=== PATIENT | female | born 1930 | race Caucasian/White ===

== ENCOUNTER 2021-11-13 13:06 | Inpatient (IN) | payer BC ==
[~2021-11-13] VITALS: Ht 162.6 cm; Wt 66.6 kg
--- NOTE | ~2021-11-13 | CON ---
[address] [address] CONSULTATION Name: ELISSA MARTIN Russel Room: [address] IN M.R.#: [id number] Admission: 11/13/21 Attend Phys: Kristine Recinos MD Discharge: Date of : [birth year] Report #: [id number] THIS REPORT FOR: cc: Mitzy Rossi MD, Pamela MD Vasudeva, Amita MD ~ DATE OF CONSULTATION: 11/15/2021 NEPHROLOGY CONSULTATION CONSULTING PHYSICIAN: Dr. Recinos. REASON FOR NEPHROLOGY CONSULTATION: Acute kidney injury. REASON FOR ADMISSION: Progressive weakness. HISTORY OF PRESENT ILLNESS: This is an 89-year-old female who came in with 3-4 week history of feeling weak and having diarrhea, possibly COVID, although she tested negative here at the hospital. She had a positive contact, came in with weakness. Her creatinine was 3.2 on admission. Denies having any kidney problems in the past. We will have a baseline creatinine on her. She does take hydrochlorothiazide at home, which was held and she was given IV fluids and creatinine is improved to 2.2. She also takes an ARB. She also was found to be in atrial flutter with a rapid ventricular response and Cardiology has been managing that. She is doing better overall. She wants to go home soon. ALLERGIES: THIMEROSAL. REVIEW OF SYSTEMS: As mentioned in history of present illness and otherwise 10-point review of systems are negative. HOME MEDICATIONS: Which include candesartan, hydrochlorothiazide, diltiazem, and metformin. PAST MEDICAL AND SURGICAL HISTORY: Which includes tachycardia. FAMILY HISTORY: Noncontributory in this 89-year-old female. SOCIAL HISTORY: Does not smoke, drink alcohol or use illicit drugs. PHYSICAL EXAMINATION: VITAL SIGNS: Blood pressure is 146/87, pulse rate is 110, temperature 37.1, respiratory rate is 20, and pulse ox is 95% on no oxygen. GENERAL: She is awake, alert, and oriented x 3. HEAD AND EYES: Atraumatic, normocephalic. [place] [address] CONSULTATION Name: ELISSA MARTIN Room: [address] IN [facility]#: [id number] Admission: 11/13/21 Attend Phys: Kristine Recinos MD Discharge: Date of : [birth year] Report #: [id number] EARS, NOSE, AND THROAT: Normal ears and nose. Mucous membranes are moist. NECK: No JVD. CHEST: Bilaterally diminished breath sounds. No crackles or wheezing. CARDIOVASCULAR: S1, S2 normal. No murmurs. ABDOMEN: Soft, nondistended, and nontender. LOWER EXTREMITIES: No lower extremity edema. NEUROLOGIC: She is grossly intact. PSYCHIATRIC: Mood and affect seems to be normal. LABORATORY DATA: Hemoglobin is 9.5. Her CO2 is 19, creatinine is 2.2, which is down from 2.5. Other labs are reviewed. IMAGING: Thyroid ultrasound, chest x-ray, chest CT, and abdominopelvic CT scan were reviewed. ASSESSMENT: 1. Acute kidney injury with baseline creatinine is not known, came in with a creatinine of 3.2 in the setting of diarrhea, volume depletion, hydrochlorothiazide and ARB use. Urinalysis, looked like contaminated specimen had no protein or blood. Renal imaging did not show any hydronephrosis, just renal cysts bilaterally which looked simple in nature. 2. Hypertension. Blood pressure seems to be controlled. 3. Atrial flutter with rapid ventricular response and aortic stenosis. Cardiology is following and managing. 4. I suspect recent COVID, although she tested negative. She had a positive family contact. 5. Diarrhea, could be in the setting of COVID, which has improved now. 6. Thyroid nodules, we defer to primary team. PLAN: 1. With IV fluids, her creatinine is improving, it is down to 2.2, I would hold off on ARB as well until she completely recovers from her STEVE. 2. Try to find out her baseline creatinine. Since her kidney function continues to get better, there is nothing else to add from Nephrology standpoint and we will be signing off now. Please call if you have any questions. Discussed with the patient. By: 0938 [id number] Quick MD /nt
[2021-11-13 13:29] VITALS: BP 169/84
[2021-11-13] MEDS ORDERED: DILTIAZEM ER180 M2 PO (13:36)
[2021-11-13] MEDS ORDERED: LIPITOR10 MG PO (13:36)
[2021-11-13] MEDS ORDERED: HYDROCHLOROTH12.5 M1 PO (13:36)
[2021-11-13] MEDS ORDERED: METFORMIN HCL500 M3 PO (13:36)
[2021-11-13] MEDS ORDERED: ATACAND4 MG PO (13:37)
[2021-11-13 13:42] LABS: URINE BILIRUBIN NEGATIVE (Negative); URINE BLOOD NEGATIVE (Negative); URINE CLARITY CLEAR; URINE COLOR YELLOW; URINE GLUCOSE-RANDOM NEGATIVE (Negative); URINE KETONES NEGATIVE (Negative); URINE LEUKOCYTES-REFLEX TRACE (Negative); URINE NITRITE-REFLEX NEGATIVE (Negative); URINE PROTEIN NEGATIVE (Negative); URINE SPECIFIC GRAVITY 1.025 (1.005-1.030); URINE UROBILINOGEN 0.2 E.U./dl (0.2-1.0)
[2021-11-13 13:50] LABS: BACTERIA-REFLEX 1-9 Few /HPF (None Seen); CRYSTALS None Seen /LPF (None Seen); HYALINE CASTS 4-10 Moderate /LPF (None Seen); SQUAMOUS 4-10 Moderate /LPF (0-3); URINE WBC-REFLEX 0-5 Rare /HPF (0-5)
[2021-11-13 13:51] LABS: URINE RBC None Seen /HPF (0-2)
[2021-11-13 13:53] LABS: ABSOLUTE EOSINOPHILS 0.1 thou/uL (0.0-0.7); ABSOLUTE LYMPHOCYTES 1.6 thou/uL (0.8-5.3); ABSOLUTE MONOCYTES 0.7 thou/uL (0.0-1.2); ABSOLUTE NEUTROPHILS 6.6 thou/uL (1.6-8.1); BASOPHILS 0.4 %; EOSINOPHILS 1.2 %; HEMOGLOBIN 11.9 gm/dL (12.0-15.0); LYMPHOCYTES 18.2 %; MCH 29.6 pg (26.0-34.0); MCHC 34.1 g/dL (28.0-37.0); MCV 86.7 fL (80.0-100.0); MONOCYTES 7.3 %; MPV 8.3 fl. (7.2-11.1); NUCLEATED RBCS 0 /100WBC; PLATELET COUNT* 236 thou/uL (150-400); POLYS 72.9 %; RBC 4.04 mil/uL (4.20-5.00); RDW-CV 14.9 % (10.5-14.5)
[2021-11-13 14:02] LABS: CALCIUM 9.5 mg/dL (8.5-10.1); CREATININE 3.2 mg/dL (0.6-1.3); POTASSIUM 3.8 mmol/L (3.5-5.1)
[2021-11-13 14:13] LABS: ALBUMIN 3.8 g/dL (3.4-5.0); TOTAL BILIRUBIN 0.4 mg/dL (<0.1-1.0); TOTAL PROTEIN 7.1 g/dL (6.4-8.2)
[2021-11-13 14:37] VITALS: BP 169/84
[2021-11-13 16:16] LABS: INFLUENZA A ANTIGEN Negative (Negative); INFLUENZA B ANTIGEN Negative (Negative)
--- NOTE | 2021-11-13 17:20 | 2DMMODE ---
[place] [address] 2 D/M-MODE ECHOCARDIOGRAM Name: ELISSA MARTIN Room: [place] [address] ADM IN [facility]#: [id number] Admission: 11/13/21 Attend Phys: Kristine Recinos, Discharge: Date of : [birth year] Date of Service: 11/13/21 1719 Report #: [id number] THIS REPORT FOR: cc: Mitzy Rossi MD, Pamela MD Liston, Michael J. MD [facility] ~ APPROVED REPORT Study performed: 11/13/2021 16:13:46 EXAM: Comprehensive 2D, Doppler, and color-flow Echocardiogram Patient Location: In-Patient Room #: er Status: routine BSA: 1.68 HR: 133 bpm BP: 169/84 mmHg Rhythm: Atrial Fibrillation Other Information Study Quality: Good Indications Atrial Fibrillation Cardiomegaly 2D Dimensions IVSd: 10.02 (7-11mm) LVOT Diam: 19.28 (18-24mm) LVDd: 33.67 mm PWd: 9.70 (7-11mm) LVDs: 25.77 (25-40mm) Aortic Root: 28.03 mm Volumes Left Atrial Volume (Systole) LA ESV Index: 31.70 mL/m2 Aortic Valve AoV Peak Neftali.: 2.26 m/s AO Peak Gr.: 20.42 mmHg LVOT Max P.22 mmHg AO Mean Gr.: 12.60 mmHg LVOT Mean P.21 mmHg LVOT Max V: 1.03 m/s AO V2 VTI: 35.63 cm LVOT Mean V: 0.69 m/s ISMAEL (VTI): 1.04 cm2 LVOT V1 VTI: 12.75 [place] [address] 2 D/M-MODE ECHOCARDIOGRAM Name: ELISSA MARTIN Room: [address] IN .R.#: [id number] Admission: 11/13/21 Attend Phys: Kristine Recinos, Discharge: Date of : [birth year] Date of Service: 11/13/21 1719 Report #: [id number] Pulmonary Valve PV Peak Neftali.: 0.84 m/s PV Peak Gr.: 2.82 mmHg Left Ventricle The left ventricle is normal size. There is normal LV segmental wall motion. Mild concentric left ventricular hypertrophy. Left ventricular systolic function is normal. LVEF is 60-65%. This study is not technically sufficient to allow evaluation of the LV diastolic function due to atrial fibrillation. Right Ventricle The right ventricle is normal size. The right ventricular systolic function is normal. Atria The left atrium size is normal. The right atrium size is normal. Aortic Valve The Aortic valve is sclerotic. No aortic regurgitation is present. Moderate to severe aortic stenosis. Mitral Valve The mitral valve is normal in structure. There is no mitral valve regurgitation noted. No evidence of mitral valve stenosis. Tricuspid Valve The tricuspid valve is normal in structure. Unable to assess PA pressure. Trace tricuspid regurgitation. Pulmonic Valve The pulmonary valve is normal in structure. There is no pulmonic valvular regurgitation. Great Vessels The aortic root is normal in size. IVC is normal in size and collapses >50% with inspiration. Pericardium There is no pericardial effusion. <Conclusion> The left ventricle is normal size. Mild concentric left ventricular hypertrophy. Left ventricular systolic [place] [address] 2 D/M-MODE ECHOCARDIOGRAM Name: ELISSA MARTIN Room: [address] IN .R.#: [id number] Admission: 11/13/21 Attend Phys: Kristine Recinos, Discharge: Date of : [birth year] Date of Service: 11/13/211718 Report #: [id number] LVEF is 60-65%. The Aortic valve is sclerotic. Moderate to severe aortic stenosis. IVC is normal in size and collapses >50% with inspiration. <ELECTRONICALLY SIGNED> By: Yamil Burnette MD, [facility] 11/13/211718 18 1719 Yamil Burnette MD, FACC /INF
[2021-11-13 17:50] VITALS: BP 128/85
[2021-11-13 22:22] VITALS: BP 128/85
[2021-11-13 22:30] VITALS: BP 175/86
[2021-11-14 00:42] VITALS: BP 152/75
[2021-11-14 04:02] VITALS: BP 156/69
[2021-11-14 04:41] LABS: HEMATOCRIT 28.9 % (37.0-47.0); MCH 29.2 pg (26.0-34.0); MCHC 33.6 g/dL (28.0-37.0); MCV 87.1 fL (80.0-100.0); MPV 8.5 fl. (7.2-11.1); RBC 3.32 mil/uL (4.20-5.00); RDW-CV 14.8 % (10.5-14.5)
--- NOTE | 2021-11-14 05:01 | NUR ---
RECEIVED PT FROM ED AT APPROX 2230. PT IS AWAKE AND ORIENTED X4. PT IS NOT IN DISTRESS, NO DESATURATIONS NOTED ON ROOM AIR. PT IS TRACING AFIB WITH RATE BETWEEN 110s TO 130s ESPECIALLY WITH ACTIVITY, DR HUNTER INFORMED, CARDIZEM PO GIVEN PER MAR WITH RATE IMPROVEMENT NOTED. PT DENIES SOA, AND CHEST PAIN/DISCOMFORT. NO OTHER CHANGES THIS SHIFT. ADMISSION ASSESSMENT DONE AND CHARTED. WCTM.
[2021-11-14 05:08] LABS: ALBUMIN 2.8 g/dL (3.4-5.0); CREATININE 2.5 mg/dL (0.6-1.3); MAGNESIUM 1.6 mg/dL (1.8-2.4); POTASSIUM 3.7 mmol/L (3.5-5.1); TOTAL BILIRUBIN 0.4 mg/dL (<0.1-1.0); TOTAL PROTEIN 5.6 g/dL (6.4-8.2)
[2021-11-14 05:48] LABS: HEMOGLOBIN 9.7 gm/dL (12.0-15.0)
[2021-11-14 11:30] VITALS: BP 154/64
--- NOTE | 2021-11-14 12:54 | EKG ---
[place] [address] ELECTROCARDIOGRAM REPORT Name: ELISSA MARTIN Room: [address] ADM IN [facility].#: [id number] Admission: 11/13/21 Attend Phys: Kristine Recinos, Discharge: Date of : [birth year] Date of Service: 11/13/21 1331 Report #: [id number] THIS REPORT FOR: //name// [facility] ED Test Date: 2021-11-13 Test Time: 13:31:50 Pat Name: ELISSA ABURTO Department: Room: [facility] Gender: F Sales Supervisor: KELLI : 1930 Requested By: Michael Weston Order Number: [id number] MD: Doug Chester Measurements Intervals [place] Rate: 128 P: LA: QRS: -1 QRSD: 109 T: 84 QT: 313 QTc: 457 Interpretive Statements Atrial fibrillation Inferior infarct, old Anterior infarct, old Lateral leads are also involved No previous ECG available for comparison Electronically Signed On 11-14-2021 12:53:56 FINE ARTS MODEL by Doug Chester [email or web address] <ELECTRONICALLY SIGNED> By: Doug Chester MD, FAC 11/14/21 1253 1331 1331 Doug Chester MD, [facility] /EPI
--- NOTE | 2021-11-14 14:21 | NUR ---
CM ATTEMPTED TO CONTACT PT VIA ROOM PHONE AND CONTACT PT SPOUSE ([phone]). CM UNABLE TO MAKE CONTACT TO COMPLETE ASSESSMENT. CM TO FOLLOWUP. PT NOT MED CLEAR AND PENDING PCR.
[2021-11-14 16:30] VITALS: BP 137/77
[2021-11-14 20:00] VITALS: BP 139/78
[2021-11-15] VITALS (7 sets, daily range): BP systolic 120–149; BP diastolic 65–87
[2021-11-15 05:32] LABS: HEMATOCRIT 28.7 % (37.0-47.0); HEMOGLOBIN 9.5 gm/dL (12.0-15.0); MCH 29.1 pg (26.0-34.0); MCHC 33.3 g/dL (28.0-37.0); MCV 87.5 fL (80.0-100.0); MPV 8.9 fl. (7.2-11.1); RBC 3.28 mil/uL (4.20-5.00); RDW-CV 15.2 % (10.5-14.5); WBC 10.5 thou/uL (4.0-11.0)
[2021-11-15 06:02] LABS: ALBUMIN 2.7 g/dL (3.4-5.0); CALCIUM 7.8 mg/dL (8.5-10.1); CREATININE 2.2 mg/dL (0.6-1.3); MAGNESIUM 1.6 mg/dL (1.8-2.4); POTASSIUM 3.8 mmol/L (3.5-5.1); TOTAL BILIRUBIN 0.2 mg/dL (<0.1-1.0); TOTAL PROTEIN 5.6 g/dL (6.4-8.2)
--- NOTE | 2021-11-15 10:54 | EKG ---
[place] [address] ELECTROCARDIOGRAM REPORT Name: ELISSA MARTIN Room: [address] ADM IN .R.#: [id number] Admission: 11/13/21 Attend Phys: Kristine Recinos, Discharge: Date of : [birth year] Date of Service: 11/14/21 1251 Report #: [id number] THIS REPORT FOR: //name// [facility] Test Date: 2021-11-14 Test Time: 12:51:06 Pat Name: ELISSA ABURTO Department: Room: [address] Gender: F Margin Clerk: MARGUERITE : 1930 Requested By: Kristine Recinos Order Number: [id number] Reading MD: Doug Chester Measurements Intervals [place] Rate: 95 P: VA: QRS: 4 QRSD: 102 T: 54 QT: 347 QTc: 436 Interpretive Statements Atrial flutter with predominant 3:1 AV block Inferior infarct, old Compared to ECG 11/13/2021 13:31:50 Atrial fibrillation no longer present Myocardial infarct finding still present Electronically Signed On 11-15-2021 10:54:39 BABCOCK TESTER by Doug Chester [email or web address] <ELECTRONICALLY SIGNED> By: Doug Chester MD, FACC 11/15/21 1054 1251 1251 Doug Chester MD, FAC /EPI
--- NOTE | 2021-11-15 11:04 | EKG ---
[place] [address] ELECTROCARDIOGRAM REPORT Name: ELISSA MARTIN Room: [address] ADM IN .R.#: [id number] Admission: 11/13/21 Attend Phys: Kristine Recinos, Discharge: Date of : [birth year] Date of Service: 11/15/21 0606 Report #: [id number] THIS REPORT FOR: //name// [facility] Test Date: 2021-11-15 Test Time: 06:06:29 Pat Name: ELISSA ABURTO Department: Room: [address] Gender: F Extrusion Bender: : 1930 Requested By: Yamil Burnette Order Number: [id number] Reading MD: Doug Chester Measurements Intervals [place] Rate: 107 P: ME: QRS: 69 QRSD: 124 T: -30 QT: 367 QTc: 490 Interpretive Statements Atrial flutter with predominant 2:1 AV block Nonspecific intraventricular conduction delay Inferior infarct, age indeterminate Anterior infarct, old Compared to ECG 11/14/2021 12:51:06 Myocardial infarct finding still present Electronically Signed On 11-15-2021 11:04:22 CERTIFIED HISTOLOGIC TECHNICIAN by Doug Chester [email or web address] <ELECTRONICALLY SIGNED> By: Doug Chester MD, FAC 11/15/21 1104 0606 0606 Doug Chester MD, FAC /EPI
--- NOTE | 2021-11-15 15:35 | NUR ---
CM ATTEMPTED TO MAKE CONTACT W/ SPOUSE [phone] TO COMPLETE ASSESSMENT BUT WAS UNABLE TO MAKE CONTACT. CM TO FOLLOWUP. PT MAY DC ON 11/17/21.
--- NOTE | 2021-11-15 16:45 | CON ---
[address] [address] CONSULTATION Name: MAYTE ABURTOELISSA Racquel Room: [address] IN .R.#: [id number] Admission: 11/13/21 Attend Phys: Kristine Recinos MD Discharge: Date of : [birth year] Report #: [id number] THIS REPORT FOR: cc: Mitzy Rossi MD,Yamil Arreola MD, MD FAC ~ cc: Mitzy Rossi MD DATE OF CONSULTATION: 11/14/2021 CARDIOLOGY CONSULTATION INDICATION: Atrial flutter and aortic stenosis. HISTORY OF PRESENT ILLNESS: The patient is a very pleasant 89-year-old white female who was admitted to the hospital after caring for herself at home with COVID-19. She was recovering slowly. Labs prior to admission showed acute renal failure for which she was referred to the hospital for further evaluation. On arrival, her creatinine was found to be 3.2. She states she had been trying fairly aggressively to stay hydrated without much success. Her primary complaints were profound weakness and fatigue. She denied any significant shortness of breath. EKG on arrival shows atrial flutter with 2:1 conduction. Despite the tachycardia, she is not having any significant symptoms related to that. An echocardiogram shows preserved LV systolic function and uhksdbdj-tr-sqegfj aortic stenosis. The patient has no symptoms related to this. PAST MEDICAL HISTORY: Significant for hypertension for which she takes medication, dyslipidemia, recent COVID-19 exposure and presumed illness. She is also on metformin, presumably for hyperglycemia. She states her sugars have been relatively well controlled. Metformin held due to renal failure at this time. FAMILY HISTORY: Noncontributory. ALLERGIES: None documented. HOME MEDICATIONS: Metformin 500 mg p.o. daily, diltiazem ER 1 tablet daily, hydrochlorothiazide 12.5 mg daily, candesartan 4 mg daily. SOCIAL HISTORY: The patient is a lifelong nonsmoker. She does not drink alcohol. REVIEW OF SYSTEMS: Positive for generalized weakness and fatigue. She has a nonproductive cough. She reports chills, but no fever. Otherwise, [address] [place] [address] CONSULTATION Name: MAYTE ABURTOELISSA Racquel Room: [address]#: [id number] Admission: 11/13/21 Attend Phys: Kristine Recinos MD Discharge: Date of : [birth year] Report #: [id number] review of systems unremarkable. PHYSICAL EXAMINATION: VITAL SIGNS: Blood pressure 156/69, pulse is in the 90s-140s, and irregular. GENERAL: This is a pleasant elderly female in no distress. Mood and affect appropriate. HEENT: Extraocular muscles intact. Mucous membranes are moist. NECK: Shows no jugular venous distention. There are no carotid bruits. CHEST: Reveals bilateral crackles. CARDIAC: Reveals an irregular rhythm that is somewhat tachycardic. There is a 2/6 systolic ejection murmur at the right upper sternal border. I do not appreciate gallop. ABDOMEN: Reveals normal bowel sounds. The abdomen is soft, nontender. EXTREMITIES: Show no edema. Peripheral pulses 2+ and easily palpable. SKIN: Warm and dry. DIAGNOSTIC DATA: A 12-lead EKG shows atrial flutter with 2:1 conduction. Chest x-ray shows no significant infiltrate. LABORATORY DATA: Reviewed. Sodium 147, potassium 3.7, chloride 115, bicarbonate 17, BUN 62, creatinine 2.5, serum glucose [TIME: 04:18]. High sensitivity troponins 54, 43, 42 and 66 sequentially. NT-proBNP 4251. White blood cell count 8.0, hemoglobin 9.7, platelet count 180,000. Echocardiogram shows normal left ventricular systolic function. There is buvnwedy-yp-wfdqcv aortic stenosis. IMPRESSION AND RECOMMENDATIONS: 1. Atrial flutter with variable response. We will give bolused flecainide and start flecainide twice daily. We will give Eliquis 2.5 mg b.i.d. Follow on telemetry. EKG in a.m. 2. Aortic stenosis, presently asymptomatic. Recommend q. 6 months echocardiograms. 3. Hypertension. Blood pressure mildly elevated at this time. We will adjust antihypertensive medications as needed during hospitalization. Her diuretic has been held secondary to dehydration. 4. Acute renal failure. Improving based on labs. We would recommend discontinuing [place] [address] CONSULTATION Name: ELISSA MARTIN Room: [address] IN [facility]#: [id number] Admission: 11/13/21 Attend Phys: Kristine Recinos MD Discharge: Date of : [birth year] Report #: [id number] 5. Possible dyslipidemia. Check fasting lipid profile. 6. History of hyperglycemia. The patient reports normal blood sugars at home. <ELECTRONICALLY SIGNED> By: Yamil Burnette MD, FACC 11/15/21 1645 1112 [id number] Burnette MD, FAC /nt
[2021-11-16 02:06] LABS: GLYCOHEMOGLOBIN (HGB A1C) 6.3 % (4.8-5.6)
--- NOTE | 2021-11-16 02:59 | NUR ---
ASSUMED CARE OF PT AT 1900. PT IS ALERT AND ORIENTED. VSS. PERRLA. NO COMPLAINTS PAIN. PT IS ON ROOM AIR. PT IS SLEEPING QUIETLY IN BED. RESPIRATIONS ARE EVEN AND NONLABORED. WILL CONTINUE TO MONITOR PT.
[2021-11-16 04:30] VITALS: BP 152/79
[2021-11-16 05:02] LABS: HEMATOCRIT 33.3 % (37.0-47.0); HEMOGLOBIN 10.3 gm/dL (12.0-15.0); MCH 29.1 pg (26.0-34.0); MCHC 30.8 g/dL (28.0-37.0); MPV 8.5 fl. (7.2-11.1); RBC 3.52 mil/uL (4.20-5.00); RDW-CV 16.1 % (10.5-14.5); WBC 12.2 thou/uL (4.0-11.0)
[2021-11-16 05:13] LABS: MCV 94.5 fL (80.0-100.0)
[2021-11-16 06:15] LABS: ALBUMIN 2.9 g/dL (3.4-5.0); ALKALINE PHOSPHATASE 54 U/L (46-116); ANION GAP 13 mmol/L (7-16); BUN 33 mg/dL (7-18); CALCIUM 8.3 mg/dL (8.5-10.1); CHLORIDE 110 mmol/L (98-107); CHOLESTEROL 155 mg/dL (<200); CO2 17 mmol/L (21-32); GLUCOSE 121 mg/dL (70-99); HDL CHOLESTEROL 55 mg/dL (>40); LDL CHOLESTEROL 85 mg/dL (<100); MAGNESIUM 1.8 mg/dL (1.8-2.4); POTASSIUM 3.6 mmol/L (3.5-5.1); SGOT 14 U/L (15-37); SGPT 30 U/L (30-65); SODIUM 140 mmol/L (136-145); TC:HDL 2.8 Ratio (Not establshd); TOTAL BILIRUBIN 0.5 mg/dL (<0.1-1.0); TOTAL PROTEIN 6.2 g/dL (6.4-8.2); TRIGLYCERIDE 76 mg/dL (<150); VLDL 15 mg/dL (<40)
[2021-11-16 06:17] LABS: SERUM ASSESSMENT CLEAR
[2021-11-16 08:30] VITALS: BP 150/83
[2021-11-16 12:00] VITALS: BP 141/77
--- NOTE | 2021-11-16 14:37 | NUR ---
EKG DONE. PATIENT MAY BE DISCHARGED TODAY.
[2021-11-16 16:00] VITALS: BP 126/70
[2021-11-16 19:30] VITALS: BP 123/85
[2021-11-17 00:31] VITALS: BP 113/69
[2021-11-17 04:00] VITALS: BP 136/75
[2021-11-17 04:48] LABS: HEMATOCRIT 30.2 % (37.0-47.0); HEMOGLOBIN 10.1 gm/dL (12.0-15.0); MCH 29.7 pg (26.0-34.0); MCHC 33.4 g/dL (28.0-37.0); MPV 8.9 fl. (7.2-11.1); RBC 3.4 mil/uL (4.20-5.00); RDW-CV 15.1 % (10.5-14.5); WBC 10.7 thou/uL (4.0-11.0)
[2021-11-17 05:04] LABS: MCV 88.9 fL (80.0-100.0)
[2021-11-17 05:07] LABS: ALBUMIN 2.8 g/dL (3.4-5.0); CALCIUM 8.4 mg/dL (8.5-10.1); CREATININE 1.9 mg/dL (0.6-1.3); MAGNESIUM 1.9 mg/dL (1.8-2.4); POTASSIUM 4.2 mmol/L (3.5-5.1); TOTAL BILIRUBIN 0.7 mg/dL (<0.1-1.0); TOTAL PROTEIN 6.4 g/dL (6.4-8.2)
[2021-11-17 05:37] LABS: GLYCOHEMOGLOBIN (HGB A1C) 6.2 % (4.8-5.6)
[2021-11-17 07:50] VITALS: BP 130/65
--- NOTE | 2021-11-17 08:04 | CON ---
[address] [address] CONSULTATION Name: ELISSA MARTIN Room: [address] IN M.R.#: [id number] Admission: 11/13/21 Attend Phys: Kristine Recinos MD Discharge: Date of : [birth year] Report #: [id number] THIS REPORT FOR: cc: Mitzy Rossi MD, Pamela MD Biggs, F. Douglas MD [facility] ~ DATE OF CONSULTATION: 11/16/2021 CARDIOLOGY HOSPITAL FOLLOWUP VISIT HISTORY OF PRESENT ILLNESS: The patient today says she feels well and has no complaints. She is not having any shortness of breath, palpitations or chest pain. Her monitor shows what may be atrial flutter with 2:1 block, although it is not clear. Her heart rate is about 110. PHYSICAL EXAMINATION: GENERAL: She feels well and has no complaints. VITAL SIGNS: Her temperature is 36.8, pulse is 107, respirations 16, blood pressure 150/83, O2 sat 94%. HEENT: Her head is atraumatic. LUNGS: Clear. There is no jugular venous distention. HEART: Revealed normal first and second heart sound. There was no S4, no S3. There was a 2/6 systolic ejection murmur heard in the aortic area. There were no other murmurs, rubs, thrills, heaves or gallops. Rhythm was regular and the rate was approximately 110. ABDOMEN: Soft, flat, nontender. There are no palpable masses, no organomegaly. EXTREMITIES: Reveal no cyanosis, clubbing or edema. IMPRESSION: 1. Atrial flutter. 2. Renal failure. 3. Status post COVID. 4. Coronary artery disease. 5. Moderate to severe aortic stenosis. RECOMMENDATIONS: I would continue current therapy and check her EKG. <ELECTRONICALLY SIGNED> By: Antonette Gayle MD, [facility] 11/17/21 0804 0917 [id number]. Eliceo Gayle MD, [facility] /nt
[2021-11-17] MEDS ORDERED: FLECAINIDE ACET50 M1 PO (08:35)
[2021-11-17] MEDS ORDERED: METOPROLOL TART25 MG PO (08:35)
[2021-11-17] MEDS ORDERED: DILTIAZEM 24HR180 M1 PO (08:35)
[2021-11-17] MEDS ORDERED: ELIQUIS5 MG PO (08:35)
[2021-11-17 08:58] VITALS: BP 130/65
[2021-11-17 09:11] VITALS: BP 120/64
--- NOTE | 2021-11-19 14:43 | EKG ---
[place] [address] ELECTROCARDIOGRAM REPORT Name: ELISSA MARTIN Room: [address] IN ..#: [id number] Admission: 11/13/21 Attend Phys: Kristine Recinos, Discharge: 11/17/21 Date of : [birth year] Date of Service: 11/16/21 1351 Report #: [id number] THIS REPORT FOR: //name// [facility] Test Date: 2021-11-16 Test Time: 13:51:07 Pat Name: ELISSA ABURTO Department: Room: [address] Gender: F Early Intervention Specialist: ANGELI : 1930 Requested By: Kristine Recinos Order Number: [id number] Reading MD: Doug Chester Measurements Intervals [place] Rate: 95 P: 79 FL: 214 QRS: -27 QRSD: 138 T: 8 QT: 384 QTc: 483 Interpretive Statements Sinus rhythm Borderline prolonged FL interval incomplete Right bundle branch block Inferior infarct, old Anteroseptal infarct, age indeterminate Compared to ECG 11/15/2021 06:06:29 Myocardial infarct finding still present Electronically Signed On 11-19-2021 14:42:50 BOILER ERECTOR by Doug Chester [email or web address] <ELECTRONICALLY SIGNED> By: Doug Chester MD, [facility] 11/19/21 1442 1351 1351 Doug Chester MD, [facility] /EPI
== END 2021-11-17 11:30 | disposition home or self-care (01) | DRG 683 ==
LOC: M.ERS 13:06 → M.TBA-ER 14:27 → M.ORTHSURG 14:27
PROVIDERS: Family Medicine; Internal Medicine Cardiovascular Disease; ADMIT Internal Medicine; ATTEND Internal Medicine
DX: N17.0 Acute kidney failure with tubular necrosis (principal); I48.92 Unspecified atrial flutter; I50.32 Chronic diastolic (congestive) heart failure; I35.0 Nonrheumatic aortic (valve) stenosis; R73.9 Hyperglycemia, unspecified; Z20.822 Contact with and (suspected) exposure to COVID-19; Z88.8 Allergy status to other drugs, medicaments and biological substances; I25.10 Atherosclerotic heart disease of native coronary artery without angina pectoris; E04.1 Nontoxic single thyroid nodule; I11.0 Hypertensive heart disease with heart failure; Z86.16 Personal history of COVID-19